=== PATIENT | female | born 1975 | race Caucasian/White ===

== ENCOUNTER 2018-04-01 07:00 | Emergency (ER) | payer MEDICARE, MEDICAID, SELFPAY ==
[2018-04-01 07:05] VITALS: BP 123/97; PULSE 82; RESP 18; TEMP 36.8; O2SAT 99; BMI 24.0
--- NOTE | 2018-04-01 07:48 | ED_ITS ---
HPI - Dental/Oral General Chief complaint: Dental/Oral Stated complaint: FACE IS SWOLLEN Time Seen by Provider: 04/01/18 07:38 Source: patient Mode of arrival: ambulatory Limitations: no limitations History of Present Illness HPI Narrative: Patient is a 43-year-old female presenting with of facial swelling and dental pain for 3 days. She was seen evaluated at [facility], prescribed Vicodin and Pen-VK. She says that her face is still swollen she has taken 4 tablets. She still feels like her face is swollen she thinks she has a fever her normal temperature is 97? her temperature here is 98. MD Complaint: tooth pain Onset (ago): day(s) (3) Relieving factors: nothing Related Data Previous Rx's Medication Instructions Recorded amoxicillin-pot clavulanate 1 tab PO Q12H #14 tab 04/01/18 [Augmentin] ondansetron [Zofran ODT] 4 mg PO Q6H PRN #10 tab 04/01/18 Allergies Allergy/AdvReac Type Severity Reaction Status Date / Time TETRACYCLINE Allergy Unknown RASH Uncoded 04/01/18 07:26 Hydrocodone AdvReac Unknown Uncoded 04/01/18 07:26 Review of Systems Review of Systems GENERAL: Denies chills,fever HEENT: Dental pain, facial swelling, see HPI RESPIRATORY: Denies dyspnea, cough, wheezing CARDIOVASCULAR: Denies chest pain, palpitations GASTROINTESTINAL: Denies nausea, vomiting MUSCULOSKELETAL: Denies extremity pain, injury SKIN: No rash, no laceration, no pruritus NEUROLOGIC: Denies weakness, dizziness, headache, numbness 8 point review of systems is negative except for those stated above and HPI PFSH Social History Smoking Status: Never smoker Exam Initial Vital Signs Initial Vital Signs: Vital Signs Temperature 98.3 F 04/01/18 07:05 Pulse Rate 82 04/01/18 07:05 Respiratory Rate 18 04/01/18 07:05 Blood Pressure 123/97 H 04/01/18 07:05 Pulse Oximetry 99 04/01/18 07:05 HENMT Adult Head Mouth w/Numbe Teeth: 2 1. No dental abscess noted okay but facial swelling noted Course Vital Signs - 8 hr 04/01/18 07:05 04/01/18 08:01 Temperature 98.3 F Pulse Rate 82 84 Respiratory Rate 18 16 Blood Pressure 123/97 H Blood Pressure [Left Arm] 134/53 H Pulse Oximetry 99 100 MDM - Dental/Oral MDM Narrative Medical decision making narrative: Patient was offered a dental block she initially agreed however later refused. Changed her antibiotic and discharged. Discharge Plan Departure Patient Disposition: Home, Self-Care Clinical Impression: Toothache Discharge Date/Time: 04/01/18 08:03 Interventions: ED Discharge Assessment Last Done: 04/01/18 08:02 Instructions: DI for Dental Pain Activity Restrictions/Additional Instructions: *You have been diagnosed with dental pain *What to do: *Continue to take medications as directed -stop taking penicillin, start taking Augmentin 1 pill twice a day -the take Zofran before taking pain medications if it causes upset stomach *Follow up with your primary care provider in 2-3 days *Return to ER if you should have any new, worsening or concerning symptoms Prescriptions: New ondansetron [Zofran ODT] 4 mg tablet,disintegrating 4 mg PO Q6H PRN (Reason: nausea) Qty: 10 RF: 0 amoxicillin-pot clavulanate [Augmentin] 875-125 mg tablet 1 tab PO Q12H Qty: 14 RF: 0
[2018-04-01 08:01] VITALS: BP 134/53; PULSE 84; RESP 16; O2SAT 100
== END 2018-04-01 08:03 | disposition home or self-care (01) ==
PROVIDERS: Emergency Provider Emergency Medicine
DX: K08.89 Other specified disorders of teeth and supporting structures (principal)
CPT/HCPCS: 99282; 99283

== ENCOUNTER 2020-11-05 18:49 | Emergency (ER) | payer MEDICARE, SELFPAY ==
[2020-11-05 18:53] VITALS: BP 132/76; PULSE 84; RESP 14; TEMP 36.6; O2SAT 99; BMI 27.3
--- NOTE | 2020-11-05 18:58 | DI.RAD.S_ITS ---
PROCEDURE: XR ANKLE LT MIN 3V INDICATIONS: left lower leg pain TECHNIQUE: 3 views of the ankle were acquired. COMPARISON: None. FINDINGS: Bones: No acute fractures or dislocations. Ankle mortise is normally aligned. No suspicious bony lesions. Soft tissues: No suspicious soft tissue calcification is seen. IMPRESSION: No acute osseous abnormality. If clinical suspicion and/or symptoms persist, further assessment with repeat plain films, or advanced imaging (e.g., CT, MRI, or bone scan) may be helpful for further assessment. Dictated by: Timur Junior M.D. on 11/05/2020 at 19:22 Approved by: Timur Junior M.D. on 11/05/2020 at 19:23
--- NOTE | 2020-11-05 18:58 | DI.RAD.S_ITS ---
PROCEDURE: XR TIBIA FIBULA RT 2V INDICATIONS: left lower leg pain TECHNIQUE: 2 views of the tibia and fibula were acquired. COMPARISON: None. FINDINGS: Bones: No acute fractures or dislocations. No suspicious bony lesions. Soft tissues: No suspicious soft tissue calcifications or masses. IMPRESSION: No acute osseous abnormality. If clinical suspicion and/or symptoms persist, further assessment with repeat plain films, or advanced imaging (e.g., CT, MRI, or bone scan) may be helpful for further assessment. Dictated by: Timur Junior M.D. on 11/05/2020 at 19:22 Approved by: Timur Junior M.D. on 11/05/2020 at 19:22
--- NOTE | 2020-11-05 23:55 | ED.EXTPRO ---
HPI - Extremity Problem General Chief complaint: Extremity Problem,Nontraumatic Stated complaint: left leg pain Time Seen by Provider: 11/05/20 23:40 Source: patient Mode of arrival: Wheelchair Limitations: no limitations History of Present Illness HPI Narrative: Patient injured her left ankle 18 hours ago. At work. 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 She came down on her left foot and ankle at a slight angle. [place] pain in the medial surface of the left ankle. Has been able to walk and bear weight since then. No previous injury. No numbness tingling or weakness. Denies any other injuries. Related Data Previous Rx's Medication Instructions Recorded amoxicillin-pot clavulanate 1 tab PO Q12H #14 tab 04/01/18 [Augmentin] ondansetron [Zofran ODT] 4 mg PO Q6H PRN #10 tab 04/01/18 Allergies Allergy/AdvReac Type Severity Reaction Status Date / Time acetaminophen [From Vicodin] Allergy Verified 11/05/20 18:53 hydrocodone [From Vicodin] Allergy Verified 11/05/20 18:53 tetracycline Allergy Verified 11/05/20 18:53 Review of Systems Review of Systems Narrative: GENERAL: Denies chills, fatigue, malaise, fever, sweats. HEENT: Denies sinus pain, ear pain, sore throat, difficulty swallowing RESPIRATORY: Denies dyspnea, cough CARDIOVASCULAR: Denies chest pain, palpitations, edema, GASTROINTESTINAL: Denies nausea, vomiting, abdominal pain, diarrhea, constipation, melena. : Denies dysuria, frequency, hematuria MUSCULOSKELETAL: Complaint muscle or bony pain SKIN: Denies rash, skin lesions NEUROLOGIC: Denies weakness, headache, numbness, change in speech, confusion PSYCHIATRIC: No SI or HI or hallucinations ROS Unobtainable: All systems reviewed & are unremarkable except as noted in HPI and below Patient History Social History Smoking Status: Never smoker Smoking Status: Never smoker alcohol intake frequency: holidays/special occasions only Substance Use Type: does not use Exam Narrative Exam Narrative: GENERAL: patient appears stated age. Well-nourished, well-developed patient, in no distress, not toxic not dyspneic HEAD: Normocephalic. EXTREMITIES: No gross deformities. Examination left lower extremity. The knee to toes exposed. Shoes and socks off. Patient able bear weight with slight antalgic gait. No footdrop. No deformity to the ankle. Mild tenderness to the medial malleolus. No bruising. No erythema. Strong pedal pulse with light touch intact to foot and toes. Foot is warm soft and pink. Nontender proximal tib-fib as well as nontender knee. NEURO: AOx4. SKIN: Warm and dry PSYCH: Not anxious, is cooperative Initial Vital Signs Initial Vital Signs: Vital Signs Temperature 97.9 F 11/05/20 18:53 Pulse Rate 84 11/05/20 18:53 Respiratory Rate 14 11/05/20 18:53 Blood Pressure 132/76 11/05/20 18:53 Pulse Oximetry 99 11/05/20 18:53 Course Course Course Narrative: No new issues or complaints during course of stay. Orders Ordered: ED Orders 11/05/20 18:58 XR ankle LT min 3V Stat XR tibia fibula LT 2V Stat Reevaluation(s) Reevaluation #1: Reviewed results with patient. Agrees for outpatient management and follow-up. Time: 00:02 Vital Signs Vital signs: Vital Signs - 8 hr 11/06/20 00:06 Pulse Rate 74 Respiratory Rate 12 Blood Pressure 128/64 Pulse Oximetry 100 MDM - Extremity (Nontraumatic) Imaging Data Extremity x-ray #1: Radiologist's Impression: [address] [id number] ReportSigned Patient: Svetlana Bradley#: [id number]: 1975Acct:[id number]/Sex: 45 / FDate of Service: 11/05/20Loc: EDAccession Number: [id number] Procedure: XR tibia fibula LT 2V Ordering Provider: Ron Melchor MD PROCEDURE: XR TIBIA FIBULA RT 2V INDICATIONS: left lower leg pain TECHNIQUE: 2 views of the tibia and fibula were acquired. COMPARISON: None. FINDINGS: Bones: No acute fractures or dislocations. No suspicious bony lesions. Soft tissues: No suspicious soft tissue calcifications or masses. IMPRESSION: No acute osseous abnormality. If clinical suspicion and/or symptoms persist, further assessment with repeat plain films, or advanced imaging (e.g., CT, MRI, or bone scan) may be helpful for further assessment. Dictated by: Timur Junior M.D. on 11/05/2020 at 19:22 Approved by: Timur Junior M.D. on 11/05/2020 at 19:22 Extremity x-ray #2: Radiologist's Impression: [address] [id number] ReportSigned Patient: Svetlana BradleyMR#: [id number]: 1975Acct:[id number]/Sex: 45 / FDate of Service: 11/05/20Loc: EDAccession Number: [id number] Procedure: XR ankle LT min 3V Ordering Provider: Ron Melchor MD PROCEDURE: XR ANKLE LT MIN 3V INDICATIONS: left lower leg pain TECHNIQUE: 3 views of the ankle were acquired. COMPARISON: None. FINDINGS: Bones: No acute fractures or dislocations. Ankle mortise is normally aligned. No suspicious bony lesions. Soft tissues: No suspicious soft tissue calcification is seen. IMPRESSION: No acute osseous abnormality. If clinical suspicion and/or symptoms persist, further assessment with repeat plain films, or advanced imaging (e.g., CT, MRI, or bone scan) may be helpful for further assessment. Dictated by: Timur Junior M.D. on 11/05/2020 at 19:22 Approved by: Timur Junior M.D. on 11/05/2020 at 19:23 [facility] Narrative Medical decision making narrative: Appropriate for discharge home. No splint indicated. Mild mild tenderness to the medial malleolus. Patient is bearing weight. Discharge Plan Departure Patient Disposition: Home Clinical Impression: Left ankle sprain Qualifiers: Encounter type: initial encounter Involved ligament of ankle: unspecified ligament Qualified Code(s): S93.402A - Sprain of unspecified ligament of left ankle, initial encounter Instructions: How to Use Crutches, DI for Ankle Sprain, How to Apply an Oscar Wrap Activity Restrictions/Additional Instructions: Call provided orthopedic office tomorrow for office recheck in a week. Use Oscar wrap and crutches when walking. May continue home ibuprofen or Tylenol for pain. May use cool packs to ankle and elevate 20 minutes at a time for pain and swelling. Return if worse or any questions or concerns Prescriptions: No Action ondansetron [Zofran ODT] 4 mg tablet,disintegrating 4 mg PO Q6H PRN (Reason: nausea) Qty: 10 RF: 0 amoxicillin-pot clavulanate [Augmentin] 875-125 mg tablet 1 tab PO Q12H Qty: 14 RF: 0 Referrals: Michel Reyes MD [Physician] - Stand Alone Forms: Work Release Note
[2020-11-06 00:06] VITALS: BP 128/64; PULSE 74; RESP 12; O2SAT 100
== END 2020-11-06 00:07 | disposition home or self-care (01) ==
PROVIDERS: Emergency Provider Emergency Medicine
DX: S93.402A Sprain of unspecified ligament of left ankle, initial encounter (principal); X58.XXXA Exposure to other specified factors, initial encounter; Y99.0 Civilian activity done for income or pay
CPT/HCPCS: 73590; 73610; 99282; 99283

== ENCOUNTER 2023-06-11 07:15 | Emergency (ER) | payer MEDICARE, MEDICAID, SELFPAY ==
--- NOTE | 2023-06-11 07:17 | ED_ITS ---
HPI - General Adult General Chief complaint: Abdominal Pain Stated complaint: per pt intestinal problems t4 diaherrea Time Seen by Provider: 06/11/23 07:17 History of Present Illness HPI narrative: 48-year-old female nonsmoker with noncontributory medical history presents with a chief complaint of 4 days loose, foul-smelling stools. She admits to some lower abdominal cramping that seems to build until she has a bowel movement at which point she experiences temporary relief until her next bowel movement which tends to be about every 2 hours or so. She denies any fever or chills. She is not dizzy nor weak or lightheaded. She is nauseated but denies any vomiting. She has a poor appetite. She states she has 1 close contact and has similar symptoms. She denies recent travel or exposure to bad foods. She states that she took a 5 day course of penicillin when she had some ?eye goop? a week or 2 ago. It was not prescribed to her for this purpose and she had laying around a nd took it to see if it would help. Related Data Previous Rx's Medication Instructions Recorded amoxicillin 875 mg-potassium 1 tab PO Q12H #14 tabs 04/01/18 clavulanate 125 mg tablet (Augmentin) ondansetron 4 mg disintegrating 4 mg PO Q6H PRN nausea #10 tabs 04/01/18 tablet (Zofran ODT) Allergies Allergy/AdvReac Type Severity Reaction Status Date / Time acetaminophen [From Vicodin] Allergy Verified 11/05/20 18:53 hydrocodone [From Vicodin] Allergy Verified 11/05/20 18:53 tetracycline Allergy Verified 11/05/20 18:53 Review of Systems Review of Systems Narrative: GENERAL: Denies chills, fatigue, malaise, fever, sweats. HEENT: Denies sinus pain, ear pain, sore throat, difficulty swallowing, dizziness. RESPIRATORY: Denies dyspnea, cough, wheezing, hemoptysis, sputum. CARDIOVASCULAR: Denies chest pain, palpitations, orthopnea, edema, GASTROINTESTINAL: See HPI : Denies dysuria, frequency, incontinence, hematuria, urinary retention. MUSCULOSKELETAL: denies weakness, joint pain, or bony pain SKIN: Denies rash, skin lesions, or other NEUROLOGIC: Denies weakness, headache, numbness, change in speech, confusion, seizures, incoordination. PSYCHIATRIC: No concerning psychosocial issues. 12 point review of systems is negative except for those stated above Patient History Social History Smoking Status: Never smoker Smoking Status: Never smoker alcohol intake frequency: holidays/special occasions only Substance Use Type: does not use Exam Narrative Exam Narrative: GENERAL: [48] year old patient appears stated age. Well-developed patient, in mi ld distress. HEAD: Atraumatic. Normocephalic. EYES: Pupils equal round and reactive. Extraocular motions intact. No scleral icterus. No injection or drainage. ENT: Moist mucous membranes Nose without bleeding, purulent drainage. Throat without erythema, tonsillar hypertrophy or exudate. Airway patent. NECK: Trachea midline. Non tender CARDIOVASCULAR: Regular rate and rhythm without murmurs, gallops, or rubs. RESPIRATORY: Clear to auscultation. Breath sounds equal bilaterally. No wheezes, rales, or rhonchi. GASTROINTESTINAL: Abdomen soft, non-tender, nondistended. Bowel sounds present in all 4 quadrants EXTREMITIES: No edema or joint tenderness. BACK: Nontender without deformity or crepitance. No flank tenderness. NEURO: AOx3. SKIN: No rash or erythema of visible areas Initial Vital Signs Initial Vital Signs: Vital Signs Temperature 98.2 F 06/11/23 07:30 Pulse Rate 72 06/11/23 07:30 Respiratory Rate 16 06/11/23 07:30 Blood Pressure 129/80 06/11/23 07:30 Pulse Oximetry 97 06/11/23 07:30 Oxygen Delivery Method Room Air 06/11/23 07:30 Course Orders Ordered: ED Orders 06/11/23 07:30 COVID19 -Nasal RAPID Stat 06/11/23 07:38 Complete Blood Count AUTO DIFF Stat Comprehensive Metabolic Panel Stat GI Panel (Film Array) Stat Lipase Stat Magnesium Stat Discontinued Medications Sodium Chloride (Normal Saline 0.9%) 1,000 mls @ 1,000 mls/hr IV BOLUS ONE Stop: 06/11/23 08:34 Last Infusion: 06/11/23 09:32 Dose: 0 mls/hr Documented By: Admin: 06/11/23 08:00 Dose: 1,000 mls/hr Documented By: ST Vital Signs Vital signs: Vital Signs - 8 hr 06/11/23 07:30 08/27/23 08:33 06/11/23 08:33 Temperature 98.2 F Pulse Rate 72 73 Respiratory Rate 16 Blood Pressure 129/80 124/68 Pulse Oximetry 97 100 Oxygen Delivery Method Room Air 06/11/23 09:00 06/11/23 09:00 06/11/23 09:30 Temperature Pulse Rate 64 Respiratory Rate Blood Pressure 117/73 115/75 Pulse Oximetry 100 Oxygen Delivery Method 06/11/23 09:30 Temperature Pulse Rate 72 Respiratory Rate Blood Pressure Pulse Oximetry 99 Oxygen Delivery Method Room Air Medical Decision Making Lab Data 06/11/23 07:38 06/11/23 07:38 Labs: Lab Results 06/11/23 06/11/23 06/11/23 Range/Units 07:30 07:38 07:38 WBC 6.3 (4.5-11.0) X10^3/uL RBC 5.52 H (4.0-5.2) X10^6/uL Hgb 12.5 (12.0-16.0) g/dL Hct 38.7 (36-46) % MCV 70.1 L (80-100) fL MCH 22.7 L (26-34) PG MCHC 32.3 (30-36) % RDW 19.1 H (11.6-14.8) % Plt Count 261 (150-400) X10^3/uL Neut % (Auto) 65.1 (50-75) % Lymph % (Auto) 23.0 L (25-40) % [place] % (Auto) 7.0 (3-14) % Eos % (Auto) 4.1 H (2-4) % Baso % (Auto) 0.8 (0-2) % Neut # (Auto) 4100 (0014-1557) /uL Lymph # (Auto) 1400 (9511-3550) /uL [place] # (Auto) 400 (0-900) /uL Eos # (Auto) 300 (0-450) /uL Baso # (Auto) 0 (0-100) /uL Sodium 139 (137-145) mmol/L Potassium 3.6 (3.4-5.1) mmol/L Chloride 105 (98-107) mmol/L Carbon Dioxide 27 (22-32) mmol/L BUN 14 (7-17) mg/dL Creatinine 0.77 (0.52-1.04) mg/dL Estimated GFR > 60 (>60) mL/min BUN/Creatinine Ratio 18.2 (6-22) Glucose 95 (70-100) mg/dL Calcium 9.0 (8.4-10.2) mg/dL Magnesium 1.9 (1.6-2.3) mg/dL Total Bilirubin 0.6 (0.2-1.3) mg/dL AST 26 (14-36) IU/L ALT 19 (<35) IU/L Alkaline Phosphatase 39 (38-126) U/L Total Protein 7.5 (6.3-8.2) g/dL Albumin 4.4 (3.5-5.0) g/dL Globulin 3.1 (1.7-4.1) g/dL Albumin/Globulin Ratio 1.4 (1.0-2.8) Lipase 313 H (23-300) U/L SARS-CoV-2 (PCR) Negative (Negative) Point of Care Testing Test Results Negative Urine Dip Bedside Urine Glucose Negative Bedside Urine Bilirubin - Negative Bedside Urine Ketone - Negative Urine Specific [place] 1.015 Bedside Urine Occult Blood - Negative Bedside Urine pH 5.5 Bedside Urine Protein - Negative Bedside Urine Urobilinogen - Negative Bedside Urine Nitrite - Negative Bedside Urine Leukocytes - Negative Esterase Point of care testing: Point of Care Testing Test Results Negative Urine Dip Bedside Urine Glucose Negative Bedside Urine Bilirubin - Negative Bedside Urine Ketone - Negative Urine Specific [place] 1.015 Bedside Urine Occult Blood - Negative Bedside Urine pH 5.5 Bedside Urine Protein - Negative Bedside Urine Urobilinogen - Negative Bedside Urine Nitrite - Negative Bedside Urine Leukocytes - Negative Esterase MDM Narrative Medical decision making narrative: [48] year old patient presents with crampy abdominal pain and diarrhea Multiple etiologies for patient's symptoms considered including, but not limited to: [C diff verse other fecal orally transmitted cause versus other] Prior Charts reviewed in our EMR Primary Historian: patient Labs reviewed and interpreted by myself: No leukocytosis or left shift, no electrolyte abnormality or signs of acute kidney injury. LFTs and bilirubin within normal. Imaging reviewed: Discussed potential benefit of imaging but we sure the opinion that her history, exam and labs are reassuring and that imaging is unlikely to change the disposition or plan History and physical exam are reassuring, no signs of sepsis, no active pain, she complains only of some crampy abdominal discomfort that builds until she is able to produce a loose stool. Multiple diagnoses considered as noted above, patient is tolerating orals, no pain. Patient observed for a few hours and unable to produce a stool sample. No indication for a specific or immediate treatment or intervention. She is sent with an outpatient order for a GI panel and appropriate containers with instructions for how to obtain and drop it off. Patient's symptoms improved over duration of stay with above-stated therapies. Findings and discharge diagnosis discussed with patient/family followed by verbalization of understanding Return precautions discussed with patient/family whom verbalize understanding of diagnosis and plan Discharge Plan Departure Patient Disposition: Home Clinical Impression: Diarrhea Instructions: Diarrhea Activity Restrictions/Additional Instructions: *You have been diagnosed with [diarrhea and crampy abdominal pain. As we discussed your history and physical exam are very reassuring in the blood work showed no significant abnormal findings. We will send you with a sample cup and an order for an outpatient lab evaluation of stool if you are able to provide a sample.] *What to do: *Please continue to take your regular medications as directed. [ ] New medication prescriptions sent to your pharmacy: [ ] [ ] New medication written as a paper prescription [ ] No new medications given *Please follow up with your primary care provider in 2-3 days, call for an appointment. Let them know you were seen in the Emergency Department and that we ask that you be seen in follow up. We will electronically transmit a record of today's note if your PCP is in our system *If you do not have a primary care provider please contact the [facility] Resource line at [phone]. They will ask some questions about your medical history and help get you set up with a doctor in the community. *Return to Emergency Department if you should have any new, worsening or concerning symptoms, such as [fever greater than 101 F, shaking chills, worsening pain, persistent vomiting or other bothersome symptoms] Prescriptions: No Action ondansetron [Zofran ODT] 4 mg tablet,disintegrating 4 mg PO Q6H PRN (Reason: nausea) Qty: 10 0RF amoxicillin-pot clavulanate [Augmentin] 875-125 mg tablet 1 tab PO Q12H Qty: 14 0RF Stand Alone Forms: Patient Portal/API
[2023-06-11 07:30] VITALS: BP 129/80; PULSE 72; RESP 16; TEMP 36.8; O2SAT 97; BMI 26.6
[2023-06-11] MEDS: SODIUM CHLORIDE 0.9% 1,000 ML 1000 ML IV (08:00)
[2023-06-11 08:05] LABS: Alanine Aminotransferase 19 IU/L (<35); Albumin 4.4 g/dL (3.5-5.0); Albumin Globulin Ratio 1.4 (1.0-2.8); Alkaline Phosphatase 39 U/L (38-126); Aspartate Aminotransferase 26 IU/L (14-36); BUN Creatinine Ratio 18.2 (6-22); Bilirubin Total 0.6 mg/dL (0.2-1.3); Blood Urea Nitrogen 14 mg/dL (7-17); Carbon Dioxide 27 mmol/L (22-32); Chloride 105 mmol/L (98-107); Estimated Glomerular Filt Rate > 60 mL/min (>60); Globulin 3.1 g/dL (1.7-4.1); Glucose 95 mg/dL (70-100); HEMOLYSIS < 15 (0-50); Lipase 313 U/L (23-300); Magnesium 1.9 mg/dL (1.6-2.3); Potassium 3.6 mmol/L (3.4-5.1); Sodium 139 mmol/L (137-145); Total Protein 7.5 g/dL (6.3-8.2)
--- NOTE | 2023-06-11 08:14 | PC.NURSE ---
Provided beverage and snack on MD request.
[2023-06-11 08:25] LABS: COVID19 -Nasal RAPID Negative (Negative)
[2023-06-11 08:26] LABS: Add Manual Diff / Slide Review NO; Basophils Absolute Auto 0 /uL (0-100); Basophils Percent Auto 0.8 % (0-2); Eosinophils Absolute Auto 300 /uL (0-450); Eosinophils Percent Auto 4.1 % (2-4); Hematocrit 38.7 % (36-46); Hemoglobin 12.5 g/dL (12.0-16.0); Lymphocytes Absolute Auto 1400 /uL (1100-4500); Mean Corpuscular HGB Conc 32.3 % (30-36); Mean Corpuscular Hemoglobin 22.7 PG (26-34); Mean Corpuscular Volume 70.1 fL (80-100); Monocytes Absolute Auto 400 /uL (0-900); Neutrophils Absolute Auto 4100 /uL (1500-7000); Neutrophils Percent Auto 65.1 % (50-75); Platelet Count 261 X10^3/uL (150-400); Red Blood Cell Count 5.52 X10^6/uL (4.0-5.2); Red Cell Distribution Width 19.1 % (11.6-14.8); White Blood Cell Count 6.3 X10^3/uL (4.5-11.0)
[2023-06-11 08:33] VITALS: BP 124/68; PULSE 73; O2SAT 100
[2023-06-11 09:00] VITALS: BP 117/73; PULSE 64; O2SAT 100
[2023-06-11 09:30] VITALS: BP 115/75; PULSE 72; O2SAT 99
[2023-06-11 16:02] LABS: Campylobacter Not Detected (Not Detect); Clostridium difficile toxin AB Not Detected (Not Detect); Cryptosporidium Not Detected (Not Detect); Cyclospora cayetanensis Not Detected (Not Detect); Enteroaggregative E.coli Not Detected (Not Detect); Enteropathogenic E.coli Not Detected (Not Detect); Enterotoxigenic E.coli It/st Not Detected (Not Detect); Plesiomonsa shigelloides Not Detected (Not Detect); Salmonella Not Detected (Not Detect); Shiga-like toxin-prod E.coli Not Detected (Not Detect); Shigella/Enteroinvasive E.coli Not Detected (Not Detect); Vibrio Not Detected (Not Detect); Vibrio cholerae Not Detected (Not Detect); Yersinia enterocolitica Not Detected (Not Detect)
[2023-06-11 16:03] LABS: Adenovirus F 40/41 Not Detected (Not Detect); Astrovirus Not Detected (Not Detect); Entamoeba histolytica Not Detected (Not Detect); Giardia lamblia Not Detected (Not Detect); Norovirus GI/GII Not Detected (Not Detect); Rotavirus A Not Detected (Not Detect); Sapovirus Not Detected (Not Detect)
== END 2023-06-11 09:34 | disposition home or self-care (01) ==
PROVIDERS: Emergency Provider Emergency Medicine
DX: R19.7 Diarrhea, unspecified (principal); R10.30 Lower abdominal pain, unspecified; Z20.822 Contact with and (suspected) exposure to COVID-19
CPT/HCPCS: 36415; 80053; 81003; 81025; 83690; 83735; 85025; 87507; 87635; 99283; 99284; C9803

== ENCOUNTER → 2024-03-22 14:46 | Outpatient (CLI) | payer MEDICARE, MEDICAID, SELFPAY ==
--- NOTE | 2024-03-22 | DI.NM.S_ITS ---
PROCEDURE: NM EXERCISE TREADMILL NON NUC COMPARISON: None. INDICATIONS: Chest pain, unspecified FINDINGS: The patient exercised for 5 minutes and 45 seconds reaching 99% of maximum predicted heart rate. 7.0 METs, ZITA +16%. Appropriate BP response to exercise. No diagnostic ST changes, no ectopy, and no angina during exercise or recovery. IMPRESSION: Low risk, normal treadmill ECG only stress test with mildly reduced exercise tolerance (7.0METs, ZITA +16%). Dictated by: Zi Trejo MD on 03/22/2024 at 17:04 Approved by: Zi Trejo MD on 03/22/2024 at 17:06
== END ==
LOC: RAD 14:48
PROVIDERS: PCP Registered Nurse; Referring Provider Internal Medicine; Visit Provider Internal Medicine
DX: R07.9 Chest pain, unspecified (principal)
CPT/HCPCS: 93017

== ENCOUNTER 2025-09-14 13:59 | Emergency (ER) | payer MEDICARE, MEDICAID, SELFPAY ==
[2025-09-14 14:16] VITALS: BP 139/89; PULSE 91; RESP 18; TEMP 36.6; O2SAT 99; BMI 26.2
--- NOTE | 2025-09-14 15:08 | ED.FEMALEGU ---
HPI - Female Genitourinary General Chief complaint: Urogenital-Female Stated complaint: Possible UTI Time Seen by Provider: 09/14/25 14:10 Source: patient Mode of arrival: Ambulatory History of Present Illness HPI Narrative: 50y F presents with concerns for UTI with back pain she walks a radiating down her leg for the past few days. Patient denies dysuria urgency frequency chest pain shortness breath. Patient also reports nauseous and having diarrhea last couple of days for which her roommate also has same symptoms. Patient denies recent trauma to her back or recent heavy lifting or any numbness or tingling down the legs. Other than what is stated 14 pt ROS is negative. Related Data Previous Rx's ?Medication ?Instructions ?Recorded amoxicillin 875 mg-potassium 1 tab PO Q12H #14 tabs 04/01/18 clavulanate 125 mg tablet (Augmentin) ondansetron 4 mg disintegrating 4 mg PO Q6H PRN nausea #10 tabs 18 tablet (Zofran ODT) Allergies Allergy/AdvReac Type Severity Reaction Status Date / Time hydrocodone (From Vicodin) Allergy Verified 09/14/25 14:20 tetracycline Allergy Verified 09/14/25 14:20 Review of Systems Review of Systems ROS Unobtainable: All systems reviewed & are unremarkable except as noted in HPI and below Exam Narrative Exam Narrative: GENERAL: [50] year old patient appears stated age. Well-developed patient, in mild distress. HEAD: Atraumatic. Normocephalic. EYES: Pupils equal round and reactive. Extraocular motions intact. No scleral icterus. No injection or drainage. NECK: Trachea midline. Non tender CARDIOVASCULAR: Regular rate and rhythm without murmurs, gallops, or rubs. RESPIRATORY: Clear to auscultation. Breath sounds equal bilaterally. No wheezes, rales, or rhonchi. GASTROINTESTINAL: Abdomen soft, non-tender, nondistended. EXTREMITIES: No edema or joint tenderness. BACK: Nontender without deformity or crepitance. No flank tenderness. NEURO: AOx3. SKIN: No rash or erythema of visible areas Initial Vital Signs Initial Vital Signs: Vital Signs Temperature 97.9 F 09/14/25 14:16 Pulse Rate 91 H 09/14/25 14:16 Respiratory Rate 18 09/14/25 14:16 Blood Pressure 139/89 09/14/25 14:16 Pulse Oximetry 99 09/14/25 14:16 Oxygen Delivery Method Room Air 09/14/25 14:16 Course Orders Ordered: Ondansetron HCl (Ondansetron 4 Mg Odt) 4 mg PO NOW PRN PRN Reason: Nausea And Vomiting Vital Signs Vital signs: Vital Signs - 8 hr 09/14/25 14:16 Temperature 97.9 F Pulse Rate 91 H Respiratory Rate 18 Blood Pressure 139/89 Pulse Oximetry 99 Oxygen Delivery Method Room Air MDM - Female Genitourinary Lab Data Labs: Urine Dip Bedside Urine Glucose Negative Bedside Urine Bilirubin - Negative Bedside Urine Ketone - Negative Urine Specific [place] 1.000 Bedside Urine Occult Blood - Negative Bedside Urine pH 6.5 Bedside Urine Protein - Negative Bedside Urine Urobilinogen +/- 1mg Bedside Urine Nitrite - Negative Bedside Urine Leukocytes - Negative Esterase MDM Narrative Medical decision making narrative: All labwork, vital signs, food preparation supervisor note, med list, previous ER visits and all imaging studies reviewed. UA no acute process. Differential dx uti, std, viral ge, dehydration, sciatica, piriformis syndrome. Pt declined any further treatment or intervention. Discharge Plan Departure Patient Disposition: Home Clinical Impression: Nausea, Diarrhea, Back pain Instructions: DI for Nausea -- Adult Activity Restrictions/Additional Instructions: Return with new or worsening symptoms. Keep hydrated. Clear liquid diet advance as tolerated. Prescriptions: No Action ondansetron [Zofran ODT] 4 mg tablet,disintegrating 4 mg PO Q6H PRN (Reason: nausea) Qty: 10 0RF amoxicillin-pot clavulanate [Augmentin] 875-125 mg tablet 1 tab PO Q12H Qty: 14 0RF Referrals: Gladys Bauer FNP-C [Primary Care Provider, Family Practice] Stand Alone Forms: Patient Portal/API
--- NOTE | 2025-09-14 15:16 | PC.NURSE ---
Patient upset that her urine test is negative. Allowed her voice her concerns and feelings. Declined medications to provider. Patient concerned that she drank too much water and that's why her test is negative, educated her that it would still be positive even with hydration if she had a UTI.
== END 2025-09-14 15:23 | disposition home or self-care (01) ==
PROVIDERS: Emergency Provider Family Medicine; PCP Registered Nurse
DX: M54.9 Dorsalgia, unspecified (principal); R11.0 Nausea; R19.7 Diarrhea, unspecified
CPT/HCPCS: 81003; 99281; 99282